=== PATIENT | female | born 2000 | race Hispanic/Latino ===

== ENCOUNTER 2022-09-07 20:09 | Outpatient (CLI) | payer MEDICAID, SELFPAY ==
--- NOTE | 2022-09-07 20:55 | PM.OBTRLD ---
Visit Information Visit Information Date of evaluation: 09/07/22 On-call OB Provider: Nelly Mathews Comments/Additional reasons for admission: 22 at 28+5 weeks gestation presenting with concern for labor. She sees Fahad Christian for obstetric care but is also followed by Ayaan due to a history of ovarian cancer. She denies leaking or bleeding and reports good movement. She is been having some lower abdominal discomfort but denies urinary symptoms. Vital Signs Vital Signs: Temperature 36.4? blood pressure 120/58 heart rate 92 PFSH Social History Smoking Status: Never smoker Evaluation Evaluation Baseline heart rate: 130 Variability: Moderate (11-25) monitor accelerations: Present Monitor Decelerations: Absent Category of Tracing: Reactive Diagnosis, Plan/Disposition Final Diagnosis (1) 28 weeks gestation of : Status: Acute Plan/Disposition Plan: Year old at 28 weeks and 5 days gestation with concern for labor. NST reactive. No contractions noted on the monitor. She denied leaking or bleeding and reported good movement. No urinary symptoms. Patient reassured no concern for labor. Follow-up as scheduled with primary OB or return if needed. OB Disposition: home
[2022-09-07 21:20] VITALS: BP 118/72; PULSE 79; RESP 20; TEMP 36.4
== END 2022-09-07 21:20 | disposition home or self-care (01) ==
LOC: OB 09-11 08:46
PROVIDERS: Referring Provider Family Medicine; Visit Provider Family Medicine
DX: O47.03 False labor before 37 completed weeks of gestation, third trimester (principal); Z3A.28 28 weeks gestation of pregnancy
CPT/HCPCS: 59025; G0378; G0379